=== PATIENT | female | born 1965 | race Asian ===

== ENCOUNTER 2019-10-07 08:26 | Day surgery (SDC) | payer MEDICAID ==
[~2019-10-07] VITALS: Ht 149.9 cm; Wt 48.1 kg
[2019-10-07] MEDS ORDERED: fentaNYL 0.05 MG/ML VIAL ONE (11:02)
[2019-10-07] MEDS ORDERED: LIDOCAINE 2% 100 MG/5 ML UJET TP ONE (11:03)
[2019-10-07] MEDS ORDERED: MIDAZOLAM 2 MG/2 ML VIAL ONE (11:17)
[2019-10-07] MEDS ORDERED: MIDAZOLAM 2 MG/2 ML VIAL IVP ONE (13:00)
[2019-10-07] MEDS ORDERED: fentaNYL 0.05 MG/ML VIAL IVP ONE (13:00)
== END 2019-10-07 12:08 | disposition home or self-care (01) ==
LOC: MDS 08:26 → MMU 09:02 → MDS 12:08
PROVIDERS: ATTEND Internal Medicine Gastroenterology
DX: Z12.11 Encounter for screening for malignant neoplasm of colon (principal); D12.4 Benign neoplasm of descending colon; K64.8 Other hemorrhoids; I10 Essential (primary) hypertension
CPT/HCPCS: 45385; J2250; J3010